=== PATIENT | female | born 1950 | race African-American/Black ===

== ENCOUNTER 2017-12-05 08:55 | Outpatient (CLI) | payer OTHER | END 2017-12-05 08:58 | disposition home or self-care (01) | LOC: SONOGRAMA 08:55 | DX: E04.1 Nontoxic single thyroid nodule (principal) ==

== ENCOUNTER 2020-04-30 11:00 | Outpatient (CLI) | payer OTHER | END 2020-04-30 11:03 | disposition home or self-care (01) | LOC: SONOGRAMA 11:00 | PROVIDERS: ATTEND Pathology Anatomic Pathology & Clinical Pathology | DX: E04.2 Nontoxic multinodular goiter (principal) ==

== ENCOUNTER 2024-06-10 08:30 | Outpatient (CLI) | payer OTHER | END 2024-06-10 08:34 | disposition home or self-care (01) | LOC: SONOGRAMA 08:30 | PROVIDERS: ATTEND Pathology Anatomic Pathology | DX: D34 Benign neoplasm of thyroid gland (principal); E07.89 Other specified disorders of thyroid; E04.2 Nontoxic multinodular goiter ==